=== PATIENT | female | born 1980 | race Caucasian/White ===

== ENCOUNTER 2020-05-15 12:47 | Outpatient (CLI) | payer BC ==
[~2020-05-15] VITALS: Ht 170.2 cm; Wt 83.2 kg
[2020-05-15 12:19] VITALS: BP 128/66; PULSE 83; TEMP 97.6
--- NOTE | 2020-05-15 12:28 | NUR ---
PT HERE FOR LABOR CHECK. STARTED HAVING ABDOMINAL PAIN AROUND 10AM. REPORTS PAIN CONSTANT, SHARP PAIN. SVE CLOSED, THICK. CERVIX IN MIDPOSITION. UNABLE TO DETERMINE POSITION. FHT'S DIFFICULT TO MONITOR, IN THE 140'S. RECENT PRENATALS SAY BABY WAS BREECH ON 05/07. MONITOR REPOSITIONED IN ATTEMPT TO BETTER TRACE FHT'S. PT REPORTS SHE HAD A BM THIS MORNING.
[~2020-05-15 12:47] MED LIST: GIANVI 3 MG-0.01 TAB PO; PROTONIX 40MG T40 MG PO
[2020-05-15 13:00] VITALS: BP 104/55; PULSE 75
[2020-05-15 13:04] LABS: COLLECTION METHOD CLEAN CATCH
[2020-05-15 13:13] LABS: HEMOGLOBIN 10.6 g/dl (12.5-16.0); MEAN CELL VOLUME 87 fl (80.0-100.0); MEAN CORPUSCULAR HEMOGLOBIN 29 pg (27.0-31.0); MEAN CORPUSCULAR HGB CONC 34 g/dl (33.0-37.0); MEAN PLATELET VOLUME 8.7 fl (7.4-10.4); PLATELET COUNT 236 K/mm3 (130-400); RED BLOOD COUNT 3.63 M/mm3 (4.10-5.30); REDCELL DISTRIBUTION WIDTH-CV 13.2 % (11.5-14.5)
[2020-05-15 13:14] LABS: HEMATOCRIT 31.6 % (37.0-47.0)
[2020-05-15 13:22] LABS: ALBUMIN 3.3 gm/dL (3.5-5.0); BILIRUBIN,TOTAL 0.3 mg/dL (0.0-1.0); CREATININE, serum 0.5 (0.52-1.25); POTASSIUM 3.9 mmol/L (3.4-5.0); TOTAL PROTEIN 6.4 gm/dL (6.4-8.2)
[2020-05-15 13:27] LABS: PH 7 (5-8); SQUAMOUS EPITHELIAL 0-2 /hpf; URINE APPEARANCE Clear; URINE BACTERIA None Seen /hpf; URINE BILIRUBIN Negative (NEGATIVE); URINE BLOOD Negative (NEGATIVE); URINE COLOR Colorless; URINE GLUCOSE Negative (NEGATIVE); URINE KETONE Negative (NEGATIVE); URINE LEUKOCYTE ESTERASE Negative (NEGATIVE); URINE NITRATE Negative (NEGATIVE); URINE PROTEIN(semi-quant) Negative (NEGATIVE); URINE RBC 0-2 /hpf; URINE UROBILINOGEN Negative (NEGATIVE); URINE WBC 0-2 /hpf
[2020-05-15 13:30] VITALS: BP 108/59; PULSE 84
[2020-05-15 14:00] VITALS: BP 113/69; PULSE 83
--- NOTE | 2020-05-15 14:15 | NUR ---
PT REPORTS SHE IS FEELING MUCH BETTER AFTER RECEIVING THE GI COCKTAIL. STATES SHE STILL HAS SOME PAIN, BUT NOTHING LIKE IT WAS. WOULD LIKE TO GO HOME. DISCUSSES DISCHARGE INSTRUCTIONS AND ENCOURAGED PT TO CALL WITH QUESTIONS/CONCERNS AND/OR RETURN TO THE HOSPITAL WITH ANY RECURRENCE OF OR CHANGE IN SYMPTOMS EVEN IF THAT MEANS RETURNING LATER TODAY. PT AND VERBALIZE UNDERSTANDING.
[2020-05-15 14:51] LABS: BAND 1 % (0-10); LYMPHOCYTE 22 % (20.0-51.0); NEUTROPHILS 73 % (42.0-75.2)
[2020-05-15 14:53] LABS: PLATELET ESTIMATE NORMAL (NORMAL)
== END 2020-05-15 14:30 | disposition home or self-care (01) ==
LOC: LDRO 12:47 → LDR 12:48 → LDRO 14:30
PROVIDERS: Obstetrics & Gynecology
DX: O26.892 Other specified pregnancy related conditions, second trimester (principal); Z3A.25 25 weeks gestation of pregnancy; R10.9 Unspecified abdominal pain
CPT/HCPCS: OP

== ENCOUNTER → 2020-08-13 | Outpatient (CLI) | payer OTHER ==
[~2020-08-13] MED LIST changes: +IBU800 M1 PO; +PERCOCET 325 MG1 TA2 PO; +PRENATAL
== END ==
LOC: ZCOL.LAB 08:00
DX: Z20.828 Contact with and (suspected) exposure to other viral communicable diseases (principal)

== ENCOUNTER 2020-08-17 08:46 | Inpatient (IN) | payer OTHER ==
[~2020-08-17] VITALS: Ht 170.3 cm; Wt 92.3 kg
[2020-08-17] VITALS (13 sets, daily range): BP systolic 111–131; BP diastolic 59–75; PULSE 75–93; TEMP 97.8–98.2
[~2020-08-17 08:46] MED LIST changes: -IBU800 M1 PO; -PERCOCET 325 MG1 TA2 PO
--- NOTE | 2020-08-17 19:05 | NUR ---
190- PT. AMBULATORY TO THE UNIT WITH BY HER SIDE. ORIENTATED TO ROOM AND CHANGED INTO CLEAN GOWN. REPORTS GFM, NO LOF, NO CONTRACTIONS AND NO BLEEDING. 1908- EFM AND TOCO ON AND TRACING. VITALS TAKEN, ASSESSMENT COMPLETED. PLAN FOR THE EVENING DISCUSSED. CONSENTS SIGNED. CALL LIGHT WITHIN REACH.
[2020-08-17 20:11] LABS: HEMOGLOBIN 10.9 g/dl (12.5-16.0); MEAN CELL VOLUME 82 fl (80.0-100.0); MEAN CORPUSCULAR HEMOGLOBIN 27 pg (27.0-31.0); MEAN CORPUSCULAR HGB CONC 33 g/dl (33.0-37.0); MEAN PLATELET VOLUME 9.3 fl (7.4-10.4); PLATELET COUNT 236 K/mm3 (130-400); RED BLOOD COUNT 4.04 M/mm3 (4.10-5.30); REDCELL DISTRIBUTION WIDTH-CV 14.6 % (11.5-14.5)
[2020-08-17 20:15] LABS: HEMATOCRIT 33.1 % (37.0-47.0)
--- NOTE | 2020-08-17 21:07 | NUR ---
CONTRACTION PATTERN ON THIS 30 MINUTE STRIP ARE NOTED TO BE ABOUT 20-40 SECONDS LONG AND ARE COMING EVERY 30-40 SECONDS. PATIENT IS UNAWARE OF THE CONTRACTIONS UNLESS WATCHING THE MONITOR. DOES NOT FEEL THEM, DOES NOT FEEL PAIN PER REPORT, ONLY FEELS UNCOMFORTABLE WHEN BABY IS KICKING. CALLING DOCTOR TO DISCUSS PATTERN. SEE PHYSICIAN NOTIFICATION.
[2020-08-17 21:11] LABS: LYMPHOCYTE 31 % (20.0-51.0); NEUTROPHILS 63 % (42.0-75.2)
[2020-08-17 21:12] LABS: HYPOCHROMIA 1+; PLATELET ESTIMATE NORMAL (NORMAL); TOXIC GRANULATION PRESENT
--- NOTE | 2020-08-17 23:02 | NUR ---
FHR TRACING BASELINE NOT ABLE TO ASSESS DUE TO SEVERAL MOMENTS WHERE HEARTBEAT HAD MARKED VARIABILITY AND SPOTTY TRACING DUE TO MATERNAL POSITION AND AUDIBLE MOVEMENTS.
[2020-08-18] VITALS (103 sets, daily range): BP systolic 91–145; BP diastolic 51–93; PULSE 69–98; TEMP 97.7–98.6
--- NOTE | 2020-08-18 06:03 | NUR ---
0545- SVE CHECK DONE BY THIS NURSE. UNABLE TO ASSESS IF ANY CERVICAL CHANGE, DUE TO NOT BEING ABLE TO REACH CERVIX. WILL DISCUSS WITH DAYSHIFT. DISCUSSED WITH PROVIDER WHO CALLED AT 0555, SEE PHYSICIAN NOTIFICATION.
--- NOTE | 2020-08-18 06:30 | NUR ---
This RN at bedside. Reviews plan of care with patient and family who verbalize understanding. Shifts assessment completed. Patient denies questions or needs at this time.
--- NOTE | 2020-08-18 07:00 | NUR ---
Patient offered birthing ball. Patient declines. Patient encouraged to change positions, to include birthing ball, standing, side laying. Patient declines at this time.
--- NOTE | 2020-08-18 08:40 | NUR ---
0840- Dr. Ratliff at bedside and reviews plan of care with patient and family. Discusses cervical ripening balloon. Patient verbalizes understanding. 0855- SVE by Dr. Amaya /, [facility]. CRB placed by Dr. Amaya. 40ml NS to internal balloon, 20ml NS to external balloon. Patient repositioned wedge left. Resting with call light within reach. Denies further questions or needs at this time. See doctors note.
--- NOTE | 2020-08-18 09:30 | NUR ---
Traction applied to CRB per Dr. Amaya's orders.
--- NOTE | 2020-08-18 10:00 | NUR ---
1000- Indeterminant basline/variability. Will continue to monitor. Stadol 1mg given at 0931. See emar. 1015- Indeterminant baseline/variability. Patient desires to reposition. Wedge right.
--- NOTE | 2020-08-18 10:30 | NUR ---
Traction applied to CRB. Remains intact.
--- NOTE | 2020-08-18 11:20 | NUR ---
Traction applied to CRB. Remains intact.
--- NOTE | 2020-08-18 12:00 | NUR ---
Traction applied to CRB. Remains intact.
--- NOTE | 2020-08-18 12:30 | NUR ---
Traction applied to CRB. Remains intact.
--- NOTE | 2020-08-18 13:45 | NUR ---
Variable and early decels noted.
--- NOTE | 2020-08-18 13:45 | NUR ---
Traction to CRB. Remains intact. Patient up in chair. States she is coping well with ctx at this time. Denies questions or needs.
--- NOTE | 2020-08-18 13:55 | NUR ---
FHR tracing intermittently. RN at bedside adj. EFM.
--- NOTE | 2020-08-18 14:05 | NUR ---
FHR tracing intermittently. Patient in chair. RN at bedside adj. EFM.
--- NOTE | 2020-08-18 14:10 | NUR ---
FHR tracing intermittently. RN at bedside adj. EFM.
--- NOTE | 2020-08-18 14:15 | NUR ---
1415- CRB removed intact with traction applied. SVE by this RN 3-/-2. Bloody show noted. 1421- Dr. Amaya upated on patient. See physician notification.
--- NOTE | 2020-08-18 14:35 | NUR ---
1435- Patient requeseting epidural. LR bolus started. Lidia Cronin CRNA notified. 1445- Lidia Cronin CRNA at bedside. Patient assisted to sit on edge of bed. Time out performed. FHR tracing intermittently due to maternal position. RN remains at bedside adjusting EFM. 1447- Pitocin paused. 1455- Epidural placed and test dose by Lidia Cronin CRNA. 1501- Patient repositioned wedge left. EFM adjusted. Pitocin resumed at 26mu. 1518- Blood pressures noted to be 90's/50's. Patient asymptomatic. LR bolus continues. Ephedrine 10mg given at this time. See emar.
--- NOTE | 2020-08-18 17:45 | NUR ---
Variable and early decels noted.
--- NOTE | 2020-08-18 19:39 | NUR ---
DIFFICULTY TRACING FHT'S DURING REPOSITIONING, FHT'S INTERMITTENTLY AUDIBLE IN THE 80'S DURING THIS TIME.
[2020-08-19] VITALS (40 sets, daily range): BP systolic 100–143; BP diastolic 57–97; PULSE 75–109; TEMP 97.4–99.1
--- NOTE | 2020-08-19 04:44 | NUR ---
0434- DR. THOMPSON ON UNIT TO EVALUATE PT. 0435- DR. THOMPSON STATES THAT CERVICAL SWELLING IS NOTED UPON EXAM, NOW 5CM/SWOLLEN/-1. PT DISCUSSES NEED FOR C/S DUE TO CERVICAL SWELLING, RISKS AND BENEFITS GIVEN, QUESTIONS ENCOURAGED AND ANSWERED. PT AND SPOUSE AGREE TO C/S AT 0444.
--- NOTE | 2020-08-19 05:19 | NUR ---
0500- 450 mls tea colored urine out of do. 0519- pt of monitors at this time, to OR for non-emeregent C/S.
--- NOTE | 2020-08-19 08:45 | NUR ---
Initial visit; Parents thanked [employer] for offering congratulations and God's blessings for the of their daughter. [employer]er thanked family for choosing [facility].
[2020-08-20 00:02] VITALS: BP 116/62; PULSE 86; TEMP 97.4
[2020-08-20 02:30] VITALS: BP 96/53; PULSE 78; TEMP 97.6
[2020-08-20] MEDS ORDERED: PERCOCET 325 MG1 TA2 PO (08:19)
[2020-08-20] MEDS ORDERED: IBU800 M1 PO (08:19)
[2020-08-20 08:45] VITALS: BP 98/56; PULSE 83; TEMP 98
--- NOTE | 2020-08-20 08:45 | NUR ---
Rests in bed, alert. Denies any needs at this time.
--- NOTE | 2020-08-20 10:30 | NUR ---
Rests in bed, alert. Request pain medication. Percocet 5/325 mg two given per request and as ordered.
--- NOTE | 2020-08-20 12:45 | NUR ---
Rests in bed, alert. Ibuprofen 800 mg given as ordered.
[2020-08-20 15:45] VITALS: BP 113/66; PULSE 76; TEMP 97.9
[2020-08-20 20:00] VITALS: BP 122/67; PULSE 85; TEMP 97.9
[2020-08-21 01:50] VITALS: BP 121/52; PULSE 80; TEMP 97.8
[2020-08-21 08:37] VITALS: BP 142/72; PULSE 91; TEMP 98.1
== END 2020-08-21 10:37 | disposition home or self-care (01) | DRG 788 ==
LOC: OB 08:46 → LDR 18:58 → OB 18:58
PROVIDERS: ADMIT Student in an Organized Health Care Education/Training Program
PROC: 3E0P7VZ Introduction of Hormone into Female Reproductive, Via Natural or Artificial Opening (ICD-10-PCS; 2020-08-17)
PROC: 10D00Z1 Extraction of Products of Conception, Low, Open Approach (ICD-10-PCS; principal; 2020-08-19)
DX: O62.0 Primary inadequate contractions (principal); O24.429 Gestational diabetes mellitus in childbirth, unspecified control; O99.214 Obesity complicating childbirth; E66.9 Obesity, unspecified; O99.62 Diseases of the digestive system complicating childbirth; K21.9 Gastro-esophageal reflux disease without esophagitis; O34.13 Maternal care for benign tumor of corpus uteri, third trimester; D25.9 Leiomyoma of uterus, unspecified; Z37.0 Single live birth; Z3A.39 39 weeks gestation of pregnancy; Z88.2 Allergy status to sulfonamides
CPT/HCPCS: J0595; J0690; J1885; J2210; J2270; J2400; J2405; J2590; J7120